=== PATIENT | female | born 1995 | race Caucasian/White ===

== ENCOUNTER → 2023-07-12 | Day surgery (SDC) | payer BC ==
[~2023-07-12] MED LIST: ACETAMINOPHEN 1000 MG/100 ML IV ONE; BUPIVACAINE 0.25% 30ML SDV ONE; DEXAMETHASONE SOD PHOS INJ 4 MG/ML SDV ONE; FENTANYL CITRATE/PF 100MCG/2 ML INJ ONE; LIDOCAINE HCL 2% LOCAL INJ 5 ML SDV VIAL INJ ONE; ONDANSETRON HCL INJ 2MG/ML 2ML 2 MG/ML VIAL ONE; PROPOFOL IV EMULSION 10 MG/ML 20 ML VIAL ONE; ROCURONIUM BROMIDE 10 MG/ML 5ML VIAL IV ONE; SEVOFLURANE INHAL SOLN 250 ML PEN BTL ONE; SUCCINYLCHOLINE CHLORIDE 20 MG/ML 10ML VIAL ONE; SUGAMMADEX SODIUM 200 MG/2 ML VIAL IV ONE
[2023-07-12] MEDS: LACTATED RINGER'S 1,000 ML ONE (06:01)
[2023-07-12 07:52] VITALS: TEMP 97.5
[2023-07-12] MEDS: MEPERIDINE HCL INJ 25 MG/ML VIAL ONE (08:21)
[2023-07-12] MEDS: ONDANSETRON HCL INJ 2MG/ML 2ML 2 MG/ML VIAL ONE (08:35)
[2023-07-12 09:40] VITALS: BP 103/69; PULSE 78; RESP 16; O2SAT 95
== END | disposition home or self-care (01) ==
LOC: OR 05:27
PROVIDERS: ATTEND Otolaryngology
DX: J35.03 Chronic tonsillitis and adenoiditis (principal); J35.8 Other chronic diseases of tonsils and adenoids; K58.9 Irritable bowel syndrome, unspecified; Z88.2 Allergy status to sulfonamides; Z97.5 Presence of (intrauterine) contraceptive device
CPT/HCPCS: 42821; 81025; 88304; J0131; J0330; J1100; J2001; J2175; J2405; J2704; J3010; J7121